=== PATIENT | male | born 1975 | race Caucasian/White ===

== ENCOUNTER 2021-06-17 20:05 | Emergency (ER) | payer OTHER ==
[2021-06-17] MEDS ORDERED: KEFLEX250 MG PO (21:43)
[2021-06-17] MEDS ORDERED: BACTRIM DS TAB1 EACH PO (21:43)
== END 2021-06-17 22:28 | disposition home or self-care (01) ==
LOC: FER 20:05
DX: L02.811 Cutaneous abscess of head [any part, except face] (principal); L03.811 Cellulitis of head [any part, except face]; I10 Essential (primary) hypertension; E11.9 Type 2 diabetes mellitus without complications; E78.5 Hyperlipidemia, unspecified; Z23 Encounter for immunization; Z88.1 Allergy status to other antibiotic agents; Z79.84 Long term (current) use of oral hypoglycemic drugs; Z79.899 Other long term (current) drug therapy
CPT/HCPCS: 87070; 87077; 87186; 87205; 90471; 90715